=== PATIENT | male | born 1960 | race Caucasian/White ===

== ENCOUNTER 2023-05-12 08:00 | Outpatient (CLI) | payer BC, OTHER ==
--- NOTE | 2023-05-12 15:07 | XRAY Report ---
PROCEDURE: Chest 2V INDICATIONS: VIRAL SYNDROME TECHNIQUE: 2 views of the chest were acquired. COMPARISON: None. FINDINGS: Surgical changes and devices: None. Lungs and pleura: No pleural effusions or pneumothorax. Lungs are clear. Mediastinum: Mediastinal contours appear normal. Heart size is normal. Bones and chest wall: No suspicious bony lesions. Overlying soft tissues appear unremarkable. IMPRESSION: No acute cardiopulmonary process. Reviewed by: Enrrique Nguyen MD on 05/12/2023 3:05 PM [facility] Approved by: Enrrique Nguyen MD on 05/12/2023 3:05 PM [facility] Station ID: [id number]
== END 2023-05-12 23:59 | disposition home or self-care (01) ==
LOC: DI.S 08:00
PROVIDERS: ATTEND Emergency Medicine
DX: B34.9 Viral infection, unspecified (principal)

== ENCOUNTER 2023-07-24 18:53 | Outpatient (CLI) | payer BC ==
--- NOTE | 2023-07-25 08:14 | Ultrasound Report ---
PROCEDURE: Pelvic Limited INDICATIONS: MASS TECHNIQUE: Real-time transabdominal scanning was performed of the pelvic organs, with image documentation. COMPARISON: None. Findings and impression: At the area of interest, there is an avascular subcutaneous hypoechoic structure measuring 3.7 x 1.2 x 3.3 cm. This contains fluid, but also has internal echoes that may represent debris, clot or solid components. Sterility is indeterminate. If further imaging is needed, consider MRI. Sampling could al so be performed. Reviewed by: Ryley Kelly MD on 07/25/2023 8:13 AM PDT Approved by: Ryley Kelly MD on 07/25/2023 8:13 AM PDT Station ID: [id number]
== END 2023-07-24 18:54 | disposition home or self-care (01) ==
LOC: DI 18:53
PROVIDERS: ATTEND Internal Medicine
DX: R22.2 Localized swelling, mass and lump, trunk (principal)